=== PATIENT | male | born 1995 | race Caucasian/White ===

== ENCOUNTER 2024-11-28 13:32 | Emergency (ER) | payer OTHER ==
[~2024-11-28] VITALS: Ht 172.7 cm; Wt 79.4 kg
[~2024-11-28 13:32] MED LIST: ALBU90OI INH; AMOX500 PO; CEPH500 PO; HYDACE5 PO; INTUNIV; RANI150 PO; RXCODACET PO; SERT100 PO; SULTRIDS PO; SULTRISS PO; TRAZ150T57 PO
[2024-11-28] MEDS ORDERED: HYDROcodone 5-APAP 325 TAB PO ONE (13:50)
[2024-11-28] MEDS ORDERED: ONDA4ODT MM (17:01)
[2024-11-28] MEDS ORDERED: PSEUDOEPHEDRINE30 M1 PO (17:01)
[2024-11-28] MEDS ORDERED: SENNA LAXATIVE8.6 MG PO (17:01)
[2024-11-28] MEDS ORDERED: POLY500 PO (17:01)
[2024-11-28] MEDS ORDERED: OXAYDO5 M1 PO (17:01)
[2024-11-28 17:16] VITALS: BP 138/71
[2024-11-28 17:45] LABS: U Amphetamine Screen Not Detected; U Barbituate Screen Not Detected; U Benzodiazapine Screen Not Detected; U Cannabinoids Screen DETECTED; U Cocaine Screen Not Detected; U Methadone Screen Not Detected; U Methamphetamine Screen Not Detected; U Opiates Screen Not Detected
[2024-11-28 17:46] LABS: U Buprenorphine Screen Not Detected; U Oxycodone Screen Not Detected; U Phencyclidine Screen Not Detected
== END 2024-11-28 17:17 | disposition home or self-care (01) ==
LOC: ER 13:32
PROVIDERS: Emergency Medicine
DX: S02.40DA Maxillary fracture, left side, initial encounter for closed fracture (principal); S02.32XA Fracture of orbital floor, left side, initial encounter for closed fracture; S02.842A Fracture of lateral orbital wall, left side, initial encounter for closed fracture; S02.40FA Zygomatic fracture, left side, initial encounter for closed fracture; Y04.8XXA Assault by other bodily force, initial encounter
CPT/HCPCS: 70450; 70486; 80320; 99284-25; A9270

== ENCOUNTER 2025-02-18 04:58 | Emergency (ER) | payer OTHER | END 2025-02-18 05:59 | disposition home or self-care (01) | LOC: ER 04:58 | DX: K02.9 Dental caries, unspecified (principal); K08.89 Other specified disorders of teeth and supporting structures; Z79.899 Other long term (current) drug therapy ==

== ENCOUNTER 2025-03-02 17:41 | Emergency (ER) | payer OTHER ==
[~2025-03-02] VITALS: Ht 175.3 cm; Wt 79.4 kg
[~2025-03-02 17:41] MED LIST changes: +AMOCLA875 PO; +NARCAN4 M1; +ONDA4ODT MM; +OXAYDO5 M1 PO; +POLY500 PO; +PSEUDOEPHEDRINE30 M1 PO; +SENNA LAXATIVE8.6 MG PO
[2025-03-02 17:49] VITALS: BP 139/85
[2025-03-02] MEDS ORDERED: Robaxin750 MG PO (19:04)
[2025-03-02] MEDS ORDERED: RX Prepack 6 Tabs Oxycodone 5mg UD ONE (19:05)
== END 2025-03-02 19:27 | disposition home or self-care (01) ==
LOC: ER 17:41
DX: S01.112A Laceration without foreign body of left eyelid and periocular area, initial encounter (principal); V19.9XXA Pedal cyclist (driver) (passenger) injured in unspecified traffic accident, initial encounter; Z87.81 Personal history of (healed) traumatic fracture; Z79.899 Other long term (current) drug therapy
CPT/HCPCS: 70450; 70486; 72125; 99283-25; A9270